=== PATIENT | male | born 1960 | race Caucasian/White ===

== ENCOUNTER 2021-01-17 10:40 | Emergency (ER) | payer BC ==
--- NOTE | 2021-01-17 12:30 | RAD REPORT ---
EXAM DESCRIPTION: RAD - Chest Single View - 01/17/2021 12:13 pm CLINICAL HISTORY: COUGH Chest pain. COMPARISON: No comparisons FINDINGS: Portable technique limits examination quality. Mild bilateral interstitial opacities are present suggesting a mild viral infection or less likely in terstitial pulmonary edema. The heart is upper limit of normal in size. No displaced fractures.
[2021-01-17 14:55] LABS: SARS-COV-2 RT PCR NEGATIVE (NEGATIVE)
[2021-01-17] MEDS ORDERED: METHYLPREDNISOLONE 125 MG INJ ONE (15:20)
[2021-01-17] MEDS ORDERED: IPRATROPIUM BROM 0.5MG/2.5ML ONE (15:21)
[2021-01-17] MEDS ORDERED: ALBUTEROL 2.5 MG/3 ML NEB SOL ONE (15:21)
[2021-01-17 15:29] LABS: Absolute Lymphocytes (CBC) 1.5 K/uL (0.7-4.9); Basophils % 2.8 % (0-1.3); Hematocrit 47.7 % (39.6-49.0); Lymphocytes % 22.9 % (15.3-44.8); MPV 9.3 fL (7.6-11.3); RBC Red Blood Cell Count 5.08 M/uL (4.33-5.43)
[2021-01-17 15:47] LABS: ALT/SGPT 71 U/L (12-78); AST/SGOT 49 U/L (15-37); Alkaline Phosphatase 204 U/L (45-117); BUN Blood Urea Nitrogen 14 mg/dL (7-18); Bicarbonate 30 mmol/L (21-32); Bilirubin Direct 0.1 mg/dL (0-0.2); Bilirubin Total 0.5 mg/dL (0.2-1.0); Ferritin 754.2 ng/mL (26-388); Glucose Level 93 mg/dL (74-106); Magnesium 2.4 mg/dL (1.8-2.4); NT PRO-BNP 8 pg/mL (<125); Potassium 4.2 mmol/L (3.5-5.1); Protein, Total 8.8 g/dL (6.4-8.2); Sodium Level 138 mmol/L (136-145); Troponin (Emerg Dept Use Only) < 0.02 ng/mL (0.0-0.045)
[2021-01-17 16:32] LABS: Urine Blood Negative (Negative); Urine Glucose Negative (Negative); Urine Protein Negative (Negative)
--- NOTE | 2021-01-17 16:33 | RAD REPORT ---
EXAM DESCRIPTION: CT - Chest For Pe Angio - 01/17/2021 4:10 pm CLINICAL HISTORY: SOB COMPARISON: Chest Single View dated 01/17/2021 TECHNIQUE: Dynamically enhanced 3 mm thick images of the chest were obtained during administration o f approximately 150mL Isovue 370 IV contrast. Coronal and oblique MIP reconstruction images were gene rated and reviewed. Exam utilizes a protocol to evaluate the pulmonary arterial tree. All CT scans are performed using dose optimization technique as appropriate and may include automated exposure control or mA/KV adjustment according to patient size. FINDINGS: No pulmonary emboli are identified. The aorta as imaged shows no acute or suspicious finding. Heart size is slightly enlarged. Prominent pericardial fat is present. No pericardial thickening or effusion. No infiltrate or mass in the lung parenchyma. No pleural effusion or pleural thickening. Interstitial pattern is prominent from infiltrate or edema. No mediastinal or hilar suspicious masses. No chest wall masses or abnormal axillary lymphadenopathy. Left hilar and left side mediastinal calcifications are benign in appearance. IMPRESSION: No pulmonary emboli identified. Prominent interstitial pattern from edema or infiltrate. No focal mass or consolidation.
--- NOTE | 2021-01-17 17:12 | ER ---
Nurse's Notes [facility] Name: Dmitry Nguyen Age: 60 yrs Sex: Male : 1960 Arrival Date: 01/17/2021 Time: 10:45 Bed 12 Private MD: Diagnosis: Other pneumonia, unspecified organism Presentation: 01/17 11:18 Chief complaint: Patient states: "[facility] checked [facility] oxygen ss and told me it was too low, to come here. They said it was 91%" Intermittent cough and chest congestion that began 3 weeks ago. Denies fever. Coronavirus screen: Client denies travel out of the [place] in the last 14 days. Ebola Screen: Patient denies exposure to infectious person. Patient denies travel to an Ebola-affected area in the 21 days before illness onset. Initial Sepsis Screen: Does the patient meet any 2 criteria? No. Patient's initial sepsis screen is negative. Does the patient have a suspected source of infection? No. Patient's initial sepsis screen is negative. Risk Assessment: Do you want to hurt yourself or someone else? Patient reports no desire to harm self or others. Onset of symptoms was December 27, 2020. 11:18 Method Of Arrival: Ambulatory ss 11:18 Acuity: MOISE 3 ss Historical: - Allergies: 11:22 No Known Allergies; ss - Home Meds: 11:22 None [Active]; ss - PMHx: 11:22 Umbilical hernia; ss - PSHx: 11:22 None; ss - Immunization history:: Adult Immunizations Client reports receiving the 1st dose of the Covid vaccine. - Social history:: Smoking status: Patient denies any tobacco usage or history of. Screenin:49 Abuse screen: Denies threats or abuse. Denies injuries from another. Nutritional ss screening: No deficits noted. Tuberculosis screening: Never had TB. Fall Risk None identified. Assessment: 15:40 Reassessment: Patient appears in no apparent distress at this time. Patient and/or ss family updated on plan of care and expected duration. Pain level reassessed. Patient is alert, oriented x 3, equal unlabored respirations, skin warm/dry/pink. Vital Signs: 11:18 BP 156 / 98; Pulse 79; Resp 17; Temp 97.0(TE); Pulse Ox 99% on R/A; Weight 97.52 kg; ss Height 5 ft. 8 in. (172.72 cm); Pain 0/10; 11:18 Body Mass Index 32.69 (97.52 kg, 172.72 cm) ss ED Course: 10:45 Patient arrived in ED. mr 11:21 Triage completed. ss 11:22 Arm band placed on right wrist. ss 12:13 XRAY Chest (1 view) In Process Unspecified. EDMS 14:35 Marco Neri PA is PHCP. cp 14:35 Marco Fernandez MD is Attending Physician. cp 14:41 Aleida Laurent, EHSAN is Primary Nurse. ss 14:49 Patient has correct armband on for positive identification. Bed in low position. Call ss light in reach. 15:08 Initial lab(s) drawn, by me, sent to lab. Inserted saline lock: 22 gauge in right kj1 antecubital area, using aseptic technique. Blood collected. 16:10 CT Chest For PE Angio In Process Unspecified. EDMS 17:50 No provider procedures requiring assistance completed. ss 17:56 IV discontinued, intact, bleeding controlled, No redness/swelling at site. Pressure ss dressing applied. Administered Medications: 15:29 Drug: Albuterol - atroVENT (ipratropium) (3:1) (2.5 mg - 0.5 mg) 3 ml Route: Nebulizer; ss 17:49 Follow up: Response: No adverse reaction ss 15:29 Drug: SOLU-Medrol (methylPrednisoLONE) 125 mg Route: IVP; Site: right antecubital; ss 17:14 Follow up: Response: No adverse reaction ss 17:20 Drug: Rocephin - (cefTRIAXone) 1 grams Route: IVPB; Infused Over: 30 mins; Site: right ss antecubital; 17:45 Follow up: IV Status: Completed infusion ss 17:40 Drug: Zithromax (azithromycin) 500 mg Route: PO; ss 18:10 Follow up: Response: No adverse reaction ss Outcome: 17:12 Discharge ordered by . cp 17:56 Condition: good ss 17:56 Discharge instructions given to Instructed on discharge instructions, follow up and referral plans. medication usage, Demonstrated understanding of instructions, follow-up care, medications, Prescriptions given X x5 18:09 Discharged to home ambulatory. ss 18:09 Patient left the ED. ss Signatures: Dispatcher [employer] AUREA Marlo Krupa Aleida Barajas, EHSAN RN ss Marco Neri PA PA cp Jackson, Kandis [email or web address] Corrections: (The following items were deleted from the chart) 11: PMHx: None; ss ss 11: PSHx: None; ss ss
--- NOTE | 2021-01-17 17:12 | EDPHYS ---
Physician Documentation [facility] Name: Dmitry Nguyen Age: 60 yrs Sex: Male : 1960 Arrival Date: 01/17/2021 Time: 10:45 Bed 12 Private MD: ED Physician Marco Fernandez HPI: 01/17 14:50 This 60 yrs old Male presents to ER via Ambulatory with complaints of Cough. cp 14:50 The patient or guardian reports cough, with no sputum, difficulty breathing. cp 14:50 Onset: The symptoms/episode began/occurred 3 week(s) ago. Severity of symptoms: in the emergency department the symptoms are unchanged, despite home interventions. Associated signs and symptoms: Pertinent positives: chest pain, with cough, Pertinent negatives: diarrhea, fever, vomiting. Patient reports having non-productive cough for about 3 weeks. Denies any fever. Reports he was referred to ED from [facility] due to oxygen sats being 91% on RA today. Historical: - Allergies: 11:22 No Known Allergies; ss - Home Meds: 11:22 None [Active]; ss - PMHx: 11:22 Umbilical hernia; ss - PSHx: 11:22 None; ss - Immunization history:: Adult Immunizations Client reports receiving the 1st dose of the Covid vaccine. - Social history:: Smoking status: Patient denies any tobacco usage or history of. ROS: 14:55 Constitutional: Negative for body aches, chills, fever, poor PO intake. cp 14:55 Eyes: Negative for injury, pain, redness, and discharge. cp 14:55 ENT: Negative for ear pain, sore throat, difficulty swallowing, difficulty handling secretions. 14:55 Cardiovascular: Positive for chest pain, with cough, Negative for edema, palpitations. 14:55 Respiratory: Positive for cough, with no reported sputum, shortness of breath. 14:55 Abdomen/GI: Negative for abdominal pain, nausea, vomiting, and diarrhea, constipation. 14:55 : Negative for urinary symptoms. 14:55 Neuro: Negative for altered mental status, dizziness, headache, syncope, weakness. 14:55 All other systems are negative. Exam: 15:00 Constitutional: The patient appears in no acute distress, alert, awake, cp non-diaphoretic, non-toxic, well developed, well nourished. 15:00 Head/Face: Normocephalic, atraumatic. cp 15:00 Eyes: Periorbital structures: appear normal, Conjunctiva: normal, no exudate, no injection, Sclera: no appreciated abnormality, Lids and lashes: appear normal, bilaterally. 15:00 ENT: External ear(s): are unremarkable, Nose: is normal, Mouth: Lips: moist, Oral mucosa: pink and intact, moist, Posterior pharynx: Airway: no evidence of obstruction, patent, Tonsils: no enlargement, no exudate, swelling, is not appreciated, erythema, that is mild, exudate, is not appreciated. 15:00 Neck: ROM/movement: is normal, is supple, without pain, no range of motions limitations, no meningismus. 15:00 Chest/axilla: Inspection: normal, Palpation: is normal, no crepitus, no tenderness. 15:00 Cardiovascular: Rate: normal, Rhythm: regular, Edema: is not appreciated, JVD: is not appreciated. 15:00 Respiratory: the patient does not display signs of respiratory distress, Respirations: labored breathing, is not present, shallow respirations, that is mild, Breath sounds: bronchial sounds, that are moderate, are heard diffusely, decreased breath sounds, that are mild, diffuse, stridor, is not appreciated. 15:00 Abdomen/GI: Inspection: abdomen appears normal, Palpation: abdomen is soft and non-tender, in all quadrants. 15:00 Back: pain, is absent, ROM is normal. 15:00 Skin: cellulitis, is not appreciated, no rash present. 15:00 Neuro: Orientation: to person, place \\T\\ time. Mentation: is normal, Motor: moves all fours, strength is normal, Sensation: is normal. 15:45 ECG was reviewed by the Attending Physician. cp Vital Signs: 11:18 BP 156 / 98; Pulse 79; Resp 17; Temp 97.0(TE); Pulse Ox 99% on R/A; Weight 97.52 kg; ss Height 5 ft. 8 in. (172.72 cm); Pain 0/10; 11:18 Body Mass Index 32.69 (97.52 kg, 172.72 cm) ss MDM: 14:38 Patient medically screened. lawson 15:00 Differential Diagnosis: Bronchitis Influenza Asthma Exacerbation Viral Syndrome cp Pneumonia Other COPD. 17:10 Data reviewed: vital signs, nurses notes, lab test result(s), EKG, radiologic studies, cp CT scan, plain films. 17:10 Test interpretation: by ED physician or midlevel provider: ECG, plain radiologic cp studies. Counseling: I had a detailed discussion with the patient and/or guardian regarding: the historical points, exam findings, and any diagnostic results supporting the discharge/admit diagnosis, lab results, radiology results, the need for outpatient follow up, a family practitioner, to return to the emergency department if symptoms worsen or persist or if there are any questions or concerns that arise at home. Response to treatment: the patient's symptoms have markedly improved after treatment, VSS. Oxygen sats 99% on RA. Patient reports symptoms improved. Will discharge to home for continued monitoring. 17:36 ED course: inquiry of [place] prescription monitor website shows last RX given for #20 cp hydrocodone 5/325 mg given 11-08-2019. 01/17 11:23 Order name: COVID-19/FLU A+B (Document "Date of Onset" if Symptomatic); Complete Time: ss 15:47 01/17 15:48 Interpretation: Reviewed. 01/17 14:50 Order name: Basic Metabolic Panel; Complete Time: 15:47 01/17 15:47 Interpretation: Normal except: GFR 82. 01/17 14:50 Order name: CBC with Diff; Complete Time: 15:48 01/17 16:41 Interpretation: Normal except: MN% 14.7; EOSINOPHIL % 4.5; BASO% 2.8. 01/17 14:50 Order name: LFT's; Complete Time: 15:48 01/17 17:05 Interpretation: Normal except: AST 49; ALK 204; TP 8.8; GLOB 4.8; A/G 0.8. 01/17 14:50 Order name: Magnesium; Complete Time: 15:48 cp 01/17 14:50 Order name: NT PRO-BNP; Complete Time: 15:48 01/17 17:12 Interpretation: Reviewed. 01/17 11:22 Order name: XRAY Chest (1 view); Complete Time: 15:47 ss 01/17 14:50 Order name: PT-INR; Complete Time: 15:47 cp 01/17 14:50 Order name: Troponin (emerg Dept Use Only); Complete Time: 15:48 cp 01/17 14:50 Order name: CRP; Complete Time: 15:48 cp 01/17 14:50 Order name: Ferritin; Complete Time: 15:48 cp 01/17 14:50 Order name: CT Chest For PE Angio; Complete Time: 16:40 cp 01/17 16:32 Order name: Urine Dipstick-Ancillary; Complete Time: 16:40 EDMS 01/17 17:06 Interpretation: Reviewed. cp 01/17 14:50 Order name: EKG; Complete Time: 14:51 cp 01/17 14:50 Order name: Cardiac monitoring; Complete Time: 15:12 cp 01/17 14:50 Order name: EKG - Nurse/Tech; Complete Time: 15:12 cp 01/17 14:50 Order name: IV Saline Lock; Complete Time: 15:12 cp 01/17 14:50 Order name: Labs collected and sent; Complete Time: 15:12 cp 01/17 14:50 Order name: O2 Per Protocol; Complete Time: 15:40 cp 01/17 14:50 Order name: O2 Sat Monitoring; Complete Time: 15:40 cp 01/17 16:42 Order name: Misc. Order: ambulate patient with pulse ox; Complete Time: 16:47 cp EC:45 Rate is 74 beats/min. Rhythm is regular. IN interval is normal. QRS interval is normal. cp QT interval is normal. T waves are Inverted in leads III, aVR. Interpreted by me. Reviewed by me. Administered Medications: 15:29 Drug: Albuterol - atroVENT (ipratropium) (3:1) (2.5 mg - 0.5 mg) 3 ml Route: Nebulizer; ss 17:49 Follow up: Response: No adverse reaction ss 15:29 Drug: SOLU-Medrol (methylPrednisoLONE) 125 mg Route: IVP; Site: right antecubital; ss 17:14 Follow up: Response: No adverse reaction ss 17:20 Drug: Rocephin - (cefTRIAXone) 1 grams Route: IVPB; Infused Over: 30 mins; Site: right ss antecubital; 17:45 Follow up: IV Status: Completed infusion ss 17:40 Drug: Zithromax (azithromycin) 500 mg Route: PO; ss 18:10 Follow up: Response: No adverse reaction ss Disposition: 01/18 09:08 Co-signature as Attending Physician, Marco Fernandez MD I agree with the assessment and lawson plan of care. Disposition Summary: 01/17/21 17:12 Discharge Ordered Location: Home cp Problem: new cp Symptoms: have improved cp Condition: Stable cp Diagnosis - Other pneumonia, unspecified organism cp Followup: cp - With: Private Physician - When: 2 - 3 days - Reason: Recheck today's complaints Discharge Instructions: - Discharge Summary Sheet cp - Community-Acquired Pneumonia, Adult cp Forms: - Medication Reconciliation Form cp - Thank You Letter cp - Antibiotic Education cp - Prescription Opioid Use cp Prescriptions: - Augmentin 875-125 mg Oral Tablet - take 1 tablet by ORAL route every 12 hours for 10 days; 20 tablet; Refills: 0, cp Product Selection Permitted - NEBULIZER MACHINE - apply 1 vial by NEBULIZATION route every 4-6 hours As needed; 1 Device; cp Refills: 0, Product Selection Permitted - albuterol sulfate 90 mcg/actuation Inhalation HFA aerosol inhaler - inhale 1 puff by INHALATION route every 4-6 hours; 1 Inhaler; Refills: 0, cp Product Selection Permitted - ipratropium-albuterol 0.5 mg-3 mg(2.5 mg base)/3 mL Inhalation solution for nebulization - inhale 3 milliliter by NEBULIZATION route 4 times per day As needed; 1 box; cp Refills: 0, Product Selection Permitted - Zithromax Z-Gregory 250 mg Oral Tablet - take 1 tablet by ORAL route as directed for 5 days Day 1 - take two (2) tablets cp one time. Day 2, 3, 4 , 5 take one (1) tablet once daily.; 6 tablet; Refills: 0, Product Selection Permitted - Medrol (Gregory) 4 mg Oral Tablets, Dose Pack - take 1 tablet by ORAL route as directed - follow package instructions; 1 cp packet; Refills: 0, Product Selection Permitted - Guaifenesin AC 10-100 mg/5 mL Oral Liquid - take 10 milliliters by ORAL route every 4 hours As needed; 240 milliliter; cp Refills: 0, Product Selection Permitted Signatures: Dispatcher [employer] Marco Milner MD MD cha Smirch, Shelby, RN RN ss Marco Nrei PA PA cp Corrections: (The following items were deleted from the chart) 01/17 PMHx: None; ss ss PSHx: None; ss ss
[2021-01-17] MEDS ORDERED: CEFTRIAXONE 1000 MG/VIAL ONE (17:26)
[2021-01-17] MEDS ORDERED: NA CHLORIDE 0.9% 50 ML ONE (17:26)
[2021-01-17] MEDS ORDERED: AZITHROMYCIN 250 MG TAB ONE (17:27)
[2021-01-17] MEDS ORDERED: CEFTRIAXONE 1,000 MG in NA CHLORIDE 0.9% 50 ML IVPB ONE (18:00)
[2021-01-17 18:18] VITALS: BP 156/98; TEMP 97; O2SAT 99
--- NOTE | 2021-01-18 16:23 | EKG ---
Test Date: 2021-01-17 Test Time: 15:38:57 Sas Clinical Programmer: DRU MEASUREMENT RESULTS: Intervals: Rate: 74 MD: 142 QRSD: 80 QT: 364 QTc: 404 [place]: P: -6 MD: 142 QRS: 30 T: 12 INTERPRETIVE STATEMENTS: Normal sinus rhythm Anterior infarct, age undetermined Abnormal ECG No previous ECG available for comparison Electronically Signed On 01-18-21 16:21:25 LOCKSTITCH HEMMER by Claudio Verdin
== END 2021-01-17 18:09 | disposition home or self-care (01) ==
LOC: ER 10:40
DX: J18.8 Other pneumonia, unspecified organism (principal); Z20.822 Contact with and (suspected) exposure to COVID-19
CPT/HCPCS: 96365; 93005; 85025; 80048; 36415; 83735; 85610; 80076; 81003; 84484; 82728; 83880; 0240U; 86140; 71275; 71045; 94640; 96375; 99284; Q9967; J2930

== ENCOUNTER 2021-04-02 12:43 | Emergency (ER) | payer BC ==
[2021-04-02] MEDS ORDERED: DIAZEPAM 10 MG/2 ML INJ SYRINGE ONE (12:45)
[2021-04-02] MEDS ORDERED: NA CHLORIDE 0.9% 1,000 ML ONE (12:59)
[2021-04-02 13:13] LABS: Absolute Lymphocytes (CBC) 1.9 K/uL (0.7-4.9); Hematocrit 48.5 % (39.6-49.0); Lymphocytes % 16.2 % (15.3-44.8); MPV 8.5 fL (7.6-11.3); RBC Red Blood Cell Count 5.06 M/uL (4.33-5.43)
[2021-04-02] MEDS ORDERED: HALOPERIDOL LACT 5 MG/ML INJ ONE (13:21)
[2021-04-02 13:23] LABS: Protime INR 0.96
[2021-04-02 13:45] LABS: ALT/SGPT 139 U/L (12-78); AST/SGOT 48 U/L (15-37); Albumin 3.2 g/dL (3.4-5.0); Alkaline Phosphatase 125 U/L (45-117); BUN Blood Urea Nitrogen 25 mg/dL (7-18); Bicarbonate 25 mmol/L (21-32); Bilirubin Direct 0.2 mg/dL (0-0.2); Bilirubin Total 0.6 mg/dL (0.2-1.0); Glucose Level 122 mg/dL (74-106); Potassium 4.4 mmol/L (3.5-5.1); Protein, Total 6.6 g/dL (6.4-8.2); Sodium Level 140 mmol/L (136-145)
[2021-04-02] MEDS ORDERED: ONDANSETRON 4 MG/2 ML VIAL ONE (14:38)
[2021-04-02] MEDS ORDERED: NA CHLORIDE 0.9% 500 ML ONE (16:44)
[2021-04-02 17:08] LABS: Barbiturates NEGATIVE (NEGATIVE); Benzodiazepines NEGATIVE (NEGATIVE); Cocaine NEGATIVE (NEGATIVE); METHAMPHETAM NEGATIVE (NEGATIVE); Methadone NEGATIVE (NEGATIVE); Opiates NEGATIVE (NEGATIVE); Phencyclidine NEGATIVE (NEGATIVE); THC Cannibis NEGATIVE (NEGATIVE)
--- NOTE | 2021-04-02 18:11 | ER ---
Nurse's Notes [facility] Name: Dmitry Nguyen Age: 61 yrs Sex: Male : 1960 Arrival Date: 04/02/2021 Time: 12:45 Bed 4 Private MD: Diagnosis: Anxiety disorder, unspecified;Shortness of breath Presentation: 04/02 12:52 Chief complaint: EMS states: EMS called to police station for difficulty breathing, pt ph found to be having a panic attack, hx of PTSD, pt was tachypneic, yelling, uncooperative w/ police and EMS, 400 mg Ketamine administered IM in L glute. BP elevated at 200s/120s, initial HR 159, Spo2 95% RA, pt restrained w/ NRB in place upon arrival to ED, awake but not speaking. Coronavirus screen: At this time, the client does not indicate any symptoms associated with coronavirus-19. Ebola Screen: No symptoms or risks identified at this time. Initial Sepsis Screen: Does the patient meet any 2 criteria? No. Patient's initial sepsis screen is negative. Does the patient have a suspected source of infection? No. Patient's initial sepsis screen is negative. Risk Assessment: Do you want to hurt yourself or someone else? Unable to obtain. Onset of symptoms was April 02, 2021. 12:52 Method Of Arrival: EMS: [facility] 12:52 Acuity: MOISE 2 ph Historical: - Allergies: 13:00 No Known Allergies; ph - PMHx: 13:00 Umbilical hernia; ETOH use; PTSD; ph - Immunization history:: Adult Immunizations unknown. - Social history:: Smoking status: unknown. Screenin:01 Abuse screen: Denies threats or abuse. Denies injuries from another. Nutritional ph screening: No deficits noted. Tuberculosis screening: No symptoms or risk factors identified. Fall Risk None identified. Assessment: 13:00 General: Appears uncomfortable, Behavior is anxious, combative, drowsy, Smells of vg1 alcohol. Pain: Denies pain. Neuro: Level of Consciousness is awake, alert, confused, Oriented to person. Cardiovascular: Patient's skin is warm and dry. Respiratory: Airway is patent Respiratory effort is even, unlabored, Respiratory pattern is tachypnea. GI: No signs and/or symptoms were reported involving the gastrointestinal system. : No signs and/or symptoms were reported regarding the genitourinary system. EENT: No signs and/or symptoms were reported regarding the EENT system. Derm: Skin is intact, is healthy with good turgor. Musculoskeletal: Circulation, motion, and sensation intact. 14:05 Reassessment: Patient appears in no apparent distress at this time. Patient and/or vg1 family updated on plan of care and expected duration. Pain level reassessed. Patient is alert, oriented x 3, equal unlabored respirations, skin warm/dry/pink. be is cooperative Patient denies pain at this time. 14:05 Musculoskeletal: Circulation, motion, and sensation intact. Range of motion: intact in vg1 all extremities. 14:05 Derm: Skin is intact, is healthy with good turgor. vg1 15:03 Reassessment: Patient appears in no apparent distress at this time. No changes from vg1 previously documented assessment. Patient and/or family updated on plan of care and expected duration. Pain level reassessed. Patient is alert, oriented x 3, equal unlabored respirations, skin warm/dry/pink. 16:00 Reassessment: Patient appears in no apparent distress at this time. No changes from vg1 previously documented assessment. Patient and/or family updated on plan of care and expected duration. Pain level reassessed. Patient is alert, oriented x 3, equal unlabored respirations, skin warm/dry/pink. pt states is 'nauseated' but declines any nausea medication; provider notified. 17:00 Reassessment: Patient appears in no apparent distress at this time. No changes from vg1 previously documented assessment. Patient and/or family updated on plan of care and expected duration. Pain level reassessed. Patient is alert, oriented x 3, equal unlabored respirations, skin warm/dry/pink. Psych: 14:30 [place] Suicide Severity Screening: In the past month, have you wished you were vg1 or wished you could go to sleep and not wake up? Patient responds "No." "In the past month, have you actually had any thoughts of killing yourself?" Patient responds "no." "In your lifetime, have you ever done anything, started to do anything, or prepared to do anything to end your life?" Patient responds "no.". Subjective: Patient's mood is anxious Delusions are denied, Hallucinations are denied. Objective: Patient is cooperative, Speech is normal, Affect is appropriate. 14:30 Interventions: Urine collected and sent for urine drug test. Safety Checks: EDUIN SHAIKH at vg1 bedside. Pt denies substance abuse. 14:30 Commitment: Patient will be a voluntary commitment. vg1 Vital Signs: 12:52 BP 156 / 112; Pulse 128; Resp 16; Temp 97.0; Pulse Ox 96% on R/A; ph 13:00 BP 150 / 110; Pulse 114; Resp 21; Pulse Ox 98% on 4 lpm NC; vg1 14:00 BP 162 / 108; Pulse 111; Resp 19; Pulse Ox 97% on R/A; vg1 15:00 BP 139 / 96; Pulse 113; Resp 18; Pulse Ox 97% on R/A; vg1 16:30 BP 166 / 105; Pulse 115; Resp 19; Pulse Ox 98% on R/A; vg1 17:00 BP 180 / 107; Pulse 108; Resp 20; Pulse Ox 96% on R/A; vg1 17:30 BP 191 / 96; Pulse 107; Resp 19; Pulse Ox 96% on R/A; vg1 18:30 BP 184 / 99; Pulse 105; Resp 20; Pulse Ox 96% on R/A; vg1 ED Course: 12:45 Patient arrived in ED. eb 12:58 Santino Braun MD is Attending Physician. kdr 13:00 Triage completed. ph 13:00 Arm band placed on right wrist. ph 13:01 Patient has correct armband on for positive identification. Bed in low position. Call ph light in reach. residential monitor on. Pulse ox on. NIBP on. Door closed. Noise minimized. Warm blanket given. Verbal reassurance given. 13:05 EKG done, by ED staff, reviewed by Santino Braun MD. dh3 13:06 Maintain EMS IV. Dressing intact. Good blood return noted. Site clean \\T\\ dry. Gauge \\T\\ ph site: 20 RAC. IV is patent, is intact, with fluids infusing freely, with good blood return. 13:09 Dorcas Gil, RN is Primary Nurse. vg1 13:30 No provider procedures requiring assistance completed. vg1 18:42 IV discontinued, intact, bleeding controlled, No redness/swelling at site. Pressure vg1 dressing applied. Restraints: 12:50 Violent/Self Destructive Restraint: Order: obtained. Initiated April 02, 2021 at ph 12:50 Staff present during the Initiation of Restraint: Dr Braun, Renee Avila, RN, Natalia Monet RN, Juan SHAIKH. Observed actions/behavior: confusion/disorientation, difficulty remembering or follow instructions, impaired decision making, unable to follow instructions, rptd attempts to remove/tamper lines/tubes/IV/med devices \\T\\ wnd dressing, verbally abusive, Monitoring: Mental status: agitated/restless, confused. Cognition: poor attention/concentration, unable to follow commands, Circulation: Within defined parameters (based on Cardiovascular assessment). Skin integrity: Within defined parameters (based on Integumentary assessment) No injuries due to Restraints noted. Restraint status: Side rails up x 4 Soft wrist restraint (Right) Started. Soft wrist restraint (Left) Started. Readiness for Discontinue: Criteria not met. Patient still violent/self destructive and Alternative interventions still ineffective. Restraint continued. 13:05 Violent/Self Destructive Restraint: Monitoring: Mental status: agitated/restless, vg1 confused. Cognition: poor attention/concentration, unable to follow commands, Circulation: Within defined parameters (based on Cardiovascular assessment). Skin integrity: Within defined parameters (based on Integumentary assessment) No injuries due to Restraints noted. 13:20 Violent/Self Destructive Restraint: Observed actions/behavior: vg1 confusion/disorientation, difficulty remembering or follow instructions, impaired decision making, unable to follow instructions, rptd attempts to remove/tamper lines/tubes/IV/med devices \\T\\ wnd dressing, Monitoring: Mental status: agitated/restless, confused. Cognition: poor attention/concentration, unable to follow commands, Circulation: Within defined parameters (based on Cardiovascular assessment). Skin integrity: Within defined parameters (based on Integumentary assessment) No injuries due to Restraints noted. 13:35 Violent/Self Destructive Restraint: Observed actions/behavior: vg1 confusion/disorientation, difficulty remembering or follow instructions, impaired decision making, unable to follow instructions, Monitoring: Mental status: agitated/restless, confused. Cognition: poor attention/concentration, unable to follow commands, Circulation: Within defined parameters (based on Cardiovascular assessment). Skin integrity: Within defined parameters (based on Integumentary assessment) No injuries due to Restraints noted. 13:50 Violent/Self Destructive Restraint: Range of Motion: Performed. Elimination/Hygiene: vg1 assisted to the bathroom. 15:02 Violent/Self Destructive Restraint: Restraint discontinuation: Discontinued at March vg1 2021 at 14:05. Administered Medications: 12:50 Drug: Valium (diazepam) 5 mg Route: IVP; Site: right antecubital; 17:22 Follow up: Response: No adverse reaction; Anxiety decreased vg1 13:09 Drug: NS 0.9% 1000 ml Route: IV; Rate: 1 bolus; Site: right antecubital; vg1 14:00 Follow up: IV Status: Completed infusion; IV Intake: 1000ml vg1 16:54 Drug: NS 0.9% 500 ml Route: IV; Rate: bolus; Site: right antecubital; vg1 17:52 Follow up: IV Status: Completed infusion; IV Intake: 500ml vg1 17:35 Not Given (Physician Discretion): HALdol (haloperidol) 1 mg IVP once vg1 Intake: 14:00 IV: 1000ml; Total: 1000ml. vg1 17:52 IV: 500ml; Total: 1500ml. vg1 Outcome: 18:11 Discharge ordered by . kdr 18:42 Discharged to Law Enforcement vg1 18:42 Condition: good 18:42 Discharge instructions given to patient, police. 18:43 Patient left the ED. vg1 Signatures: Santino Braun MD MD [facility] Renee Avila, EHSAN MOSER Natalia Monet RN RN Betty Jovel [facility] Peggy Zhang Victoria, RN RN vg1 Corrections: (The following items were deleted from the chart) 15:04 14:05 Reassessment: Patient appears in no apparent distress at this time. Patient vg1 and/or family updated on plan of care and expected duration. Pain level reassessed. Patient is alert, oriented x 3, equal unlabored respirations, skin warm/dry/pink. be is cooperative Patient denies pain at this time. vg1
--- NOTE | 2021-04-02 18:11 | EDPHYS ---
Physician Documentation [facility] Name: Dmitry Nguyen Age: 61 yrs Sex: Male : 1960 Arrival Date: 04/02/2021 Time: 12:45 Bed 4 Private MD: ED Physician Santino Braun HPI: 04/02 13:02 This 61 yrs old Male presents to ER via EMS with complaints of Altered mental status. kdr 13:02 The patient presents with agitation, confusion, disorientation. Onset: The kdr symptoms/episode began/occurred at an unknown time. Possible causes: Psychiatric, PTSD. Associated signs and symptoms: The patient has no apparent associated signs or symptoms. Current symptoms: In the emergency department the patient's symptoms are unchanged from the initial presentation. Patient's baseline: Unknown. It is unknown whether or not the patient has had similar symptoms in the past. It is unknown whether or not the patient has recently seen a physician. Patient arrived by EMS in police custody. He had been given 400 mg of ketamine prior to arrival IM. He was currently belligerent but manageable. Patient is very paranoid acting. He is unable to respond to questions due to his mental status. Please relate that he was initially contacted by them at home where he was acting combative and apparently felt to be a danger to himself or others at the scene. At that point he was taken into custody and brought to the custodial. After several hours, the patient seemed to be having a panic attack and was complaining of shortness of breath. EMS was called and on their initial contact, the patient was Petersen cooperative. They gave the patient 400 mg of ketamine which enabled them to gain sufficient control to package the patient and bring him to the ED. On arrival, he was very uncooperative and agitated.. Historical: - Allergies: 13:00 No Known Allergies; ph - PMHx: 13:00 Umbilical hernia; ETOH use; PTSD; ph - Immunization history:: Adult Immunizations unknown. - Social history:: Smoking status: unknown. ROS: 13:02 Constitutional: Unable to obtain secondary to the patient's altered mental status kdr Exam: 13:02 Constitutional: This is a well developed, well nourished patient who is apparently kdr under the influence of the ketamine and poorly alert, and in moderate distress. Head/Face: Normocephalic, atraumatic. Eyes: Pupils equal round and reactive to light, extra-ocular motions intact. Lids and lashes normal. Conjunctiva and sclera are non-icteric and not injected. Cornea within normal limits. Periorbital areas with no swelling, redness, or edema. Neck: Trachea midline, no thyromegaly or masses palpated, and no cervical lymphadenopathy. Supple, full range of motion without nuchal rigidity, or vertebral point tenderness. No Meningismus. Chest/axilla: Normal chest wall appearance and motion. Nontender with no deformity. No lesions are appreciated. Cardiovascular: Regular rate and rhythm with a normal S1 and S2. No gallops, murmurs, or rubs. Normal PMI, no JVD. No pulse deficits. Respiratory: Lungs have equal breath sounds bilaterally, clear to auscultation and percussion. No rales, rhonchi or wheezes noted. No increased work of breathing, no retractions or nasal flaring. Psych: Awake, alert, with orientation to person, place and time. Behavior, mood, and affect are within normal limits. 13:02 Neuro: Orientation: unable to test, Agitated and uncooperative with altered mental status, Cranial nerves: no acute changes, Motor: moves all fours, Sensation: unable to test, Gait: unable to assess, Agitated and paranoid. Vital Signs: 12:52 BP 156 / 112; Pulse 128; Resp 16; Temp 97.0; Pulse Ox 96% on R/A; ph 13:00 BP 150 / 110; Pulse 114; Resp 21; Pulse Ox 98% on 4 lpm NC; vg1 14:00 BP 162 / 108; Pulse 111; Resp 19; Pulse Ox 97% on R/A; vg1 15:00 BP 139 / 96; Pulse 113; Resp 18; Pulse Ox 97% on R/A; vg1 16:30 BP 166 / 105; Pulse 115; Resp 19; Pulse Ox 98% on R/A; vg1 17:00 BP 180 / 107; Pulse 108; Resp 20; Pulse Ox 96% on R/A; vg1 17:30 BP 191 / 96; Pulse 107; Resp 19; Pulse Ox 96% on R/A; vg1 18:30 BP 184 / 99; Pulse 105; Resp 20; Pulse Ox 96% on R/A; vg1 MDM: 16:04 Data reviewed: vital signs, nurses notes, lab test result(s), radiologic studies. kdr Counseling: I had a detailed discussion with the patient and/or guardian regarding: the historical points, exam findings, and any diagnostic results supporting the discharge/admit diagnosis, lab results, radiology results. ED course: Patient is currently refusing head CT. I have reinterviewed the patient. He seems distraught that he was injected with medications at the custodial which she feels is now left him disoriented and dizzy. He seems to be very distraught over his current situation. He indicated that he is never been in custodial never already had a speeding ticket he had now he sits in custodial. On top of that he felt like he could not breathe and when EMS was called, they subsequently injected him with medications that now have him feeling very unsettled. Patient appears very paranoid and distraught over his current circumstances. He is not currently threatening himself or others. He is acting in a controlled manner. He does not require further intervention at this time. We will reevaluate in an hour or so to determine whether or not he is returning back to baseline is sufficiently stable to go back to custodial with the officer present. 18:11 Patient medically screened. [facility] 04/02 13: Order name: Acetaminophen [facility] 04/02 13: Order name: Basic Metabolic Panel [facility] 04/02 13: Order name: CBC with Diff [facility] 04/02 13: Order name: ETOH Level [facility] 04/02 13: Order name: Hepatic Function; Complete Time: 16:03 [facility] 04/02 13: Order name: PT-INR; Complete Time: 16:03 [facility] 04/02 13: Order name: Ptt, Activated; Complete Time: 16:03 [facility] 04/02 13: Order name: Salicylate; Complete Time: 16:03 [facility] 04/02 13: Order name: Urine Drug Screen; Complete Time: 18:09 [facility] 04/02 13: Order name: Acetaminophen Level; Complete Time: 16:03 [facility] 04/02 13:01 Order name: Basic Metabolic Panel; Complete Time: 16:03 [facility] 04/02 13:01 Order name: CBC with Automated Diff; Complete Time: 16:03 [facility] 04/02 13:01 Order name: Alcohol Serum/Plasma; Complete Time: 16:03 [facility] 04/02 16:38 Order name: Troponin High Sensitivity; Complete Time: 18:09 vg1 04/02 13:01 Order name: EKG; Complete Time: 13:01 kdr 04/02 13:01 Order name: EKG - Nurse/Tech; Complete Time: 13:09 kdr 04/02 13:01 Order name: IV Saline Lock; Complete Time: 13:09 kdr 04/02 13:01 Order name: Labs collected and sent; Complete Time: 13:09 kdr 04/02 13:01 Order name: Suicide Screening ([place]); Complete Time: 17:37 kdr 04/02 13:01 Order name: Urine Dipstick-Ancillary (obtain specimen); Complete Time: 17:20 kdr Administered Medications: 12:50 Drug: Valium (diazepam) 5 mg Route: IVP; Site: right antecubital; iw 17:22 Follow up: Response: No adverse reaction; Anxiety decreased vg1 13:09 Drug: NS 0.9% 1000 ml Route: IV; Rate: 1 bolus; Site: right antecubital; vg1 14:00 Follow up: IV Status: Completed infusion; IV Intake: 1000ml vg1 16:54 Drug: NS 0.9% 500 ml Route: IV; Rate: bolus; Site: right antecubital; vg1 17:52 Follow up: IV Status: Completed infusion; IV Intake: 500ml vg1 17:35 Not Given (Physician Discretion): HALdol (haloperidol) 1 mg IVP once vg1 Disposition Summary: 04/02/21 18:11 Discharge Ordered Location: Home kdr Problem: new kdr Symptoms: have improved kdr Condition: Stable kdr Diagnosis - Anxiety disorder, unspecified kdr - Shortness of breath kdr Followup: kdr - With: Private Physician - When: 2 - 3 days - Reason: If symptoms return, Further diagnostic work-up, Recheck today's complaints, Continuance of care, Re-evaluation by your physician Discharge Instructions: - Discharge Summary Sheet kdr - Shortness of Breath, Adult, [id number] kdr - Generalized Anxiety Disorder, Adult kdr Forms: - Medication Reconciliation Form kdr - Thank You Letter kdr Signatures: Dispatcher [employer] Santino Anthony MD MD kdr Renee Avila RN RN iw Natalia Monet RN RN ph Jeffery, Dorcas, RN RN vg1
[2021-04-02 19:01] VITALS: TEMP 97
[2021-04-02 19:07] VITALS: O2SAT 96
[2021-04-02 19:09] VITALS: BP 184/99
== END 2021-04-02 18:43 | disposition home or self-care (01) ==
LOC: ER 12:43
DX: F41.9 Anxiety disorder, unspecified (principal); R06.02 Shortness of breath; F43.10 Post-traumatic stress disorder, unspecified
CPT/HCPCS: 96361; 93005 ×2; 85025; 80048; 36415; 80320; 80329 ×2; 85610; 80076; 85730; 84484; 80307; 96374; 99285; J3360; J7040; J7030; J2405; J1630

== ENCOUNTER 2023-10-30 05:57 | Day surgery (SDC) | payer BC ==
[2023-10-29 15:05] LABS: Absolute Basophils 0.1 K/uL (0-0.5); Absolute Eosinophils 0.3 K/uL (0-0.5); Absolute Lymphocytes (CBC) 1.5 K/uL (0.7-4.9); Absolute Monocytes 1.1 K/uL (0.1-1.3); Absolute Neutrophil 6.5 K/uL (1.8-8.0); Basophils % 1.1 % (0-1.3); Eosinophils % 3.4 % (0-4.4); Hematocrit 46.7 % (39.6-49.0); Hemoglobin 15.9 g/dL (13.6-17.9); Lymphocytes % 16.1 % (15.3-44.8); MCH 32.6 pg (27.0-35.0); MCHC 34.2 g/dL (32.0-36.0); MCV 95.3 fL (80-100); MPV 8.5 fL (7.6-11.3); Monocytes % 11.4 % (3.3-12.3); Nucleated Red Blood Cells % 0.1 % (0-0); Platelets 208 thou/uL (152-406); Red Cell Distribution Width 14.3 % (12.1-15.2)
--- NOTE | 2023-10-29 15:16 | RAD REPORT ---
EXAM DESCRIPTION: RAD - Chest Pa And Lat (2 Views) - 10/29/2023 3:06 pm CLINICAL HISTORY: pre op Chest pain. COMPARISON: <Comparisons> FINDINGS: Mild interstitial pulmonary edema. The heart is mildly enlarged in size. No displaced frac tures. IMPRESSION: Mild CHF.
[2023-10-29 15:18] LABS: Anion Gap 8.1 mEq/L (5.0-15.0); Potassium 4.1 mEq/L (3.5-5.1)
[2023-10-30] MEDS ORDERED: CEFAZOLIN SODIUM 1 GM/VIAL ONE (06:14)
[2023-10-30] MEDS ORDERED: Ringers Lactate 1,000 ML IV ONE (06:15)
[2023-10-30] MEDS ORDERED: propofoL 200 MG/20 ML VIAL IV ONE (07:04)
[2023-10-30] MEDS ORDERED: KETOROLAC 30 MG/ML INJ ONE (07:04)
[2023-10-30] MEDS ORDERED: MIDAZOLAM HCL 2 MG/2 ML INJ ONE (07:04)
[2023-10-30] MEDS ORDERED: LIDOCAINE 1% MPF 5 ML VIAL ONE (07:04)
[2023-10-30] MEDS ORDERED: ROCURONIUM 50 MG/5 ML VIAL IV ONE (07:04)
[2023-10-30] MEDS ORDERED: FENTANYL CITR 100 MCG/2 ML ONE (07:04)
[2023-10-30] MEDS ORDERED: GLYCOPYRROLATE 0.2 MG/ML SYR ONE (07:04)
[2023-10-30] MEDS ORDERED: ONDANSETRON 4 MG/2 ML VIAL ONE (07:04)
[2023-10-30] MEDS ORDERED: DEXMEDETOMIDINE HCL 200 MCG/2 ML VIAL ONE (07:53)
[2023-10-30] MEDS ORDERED: EPHEDRINE SULF 50 MG/ML VIAL ONE (08:08)
--- NOTE | 2023-10-30 08:33 | P.BOP ---
Preoperative diagnosis: tender umbilical hernia Postoperative diagnosis: same Primary procedure: Laparoscopic repair of tender umbilical hernia 4cm with mesh Estimated blood loss: <10cc Specimen: sac Findings: as above, incarcerated omentum Anesthesia: General Complications: None Implants: ventralex mesh Transferred to: Recovery Room Condition: Good
[2023-10-30] MEDS ORDERED: Mastisol Adhesive Liq ONE (08:36)
[2023-10-30 10:09] VITALS: BP 129/88; TEMP 96.4; O2SAT 97
--- NOTE | 2023-10-31 16:29 | EKG ---
Test Date: 2023-10-29 Test Time: 14:52:30 Entry Operator: MORRIS MEASUREMENT RESULTS: Intervals: Rate: 74 WV: 130 QRSD: 94 QT: 368 QTc: 408 [place]: P: 1 WV: 130 QRS: 33 T: 23 INTERPRETIVE STATEMENTS: Normal sinus rhythm Normal ECG Compared to ECG 04/02/2021 17:06:11 Sinus tachycardia no longer present Myocardial infarct finding no longer present Electronically Signed On 10-31-23 16:23:39 CDT by Jaison Mederos
--- NOTE | 2023-11-05 05:14 | OP ---
Surgeon: Guillermo Cummings MD Preoperative Diagnosis: Tender umbilical hernia. Postoperative Diagnosis: Tender umbilical hernia. Procedure: Laparoscopic repair of umbilical hernia with mesh about 4 cm. Estimated Blood Loss: Less than 10 cc. Findings: Incarcerated omentum and umbilical hernia. Mesh: Ventralex mesh. Complications: None. Indications: This is a case of a 63-year-old patient who comes to us with a tender umbilical hernia. The benefits, alternatives, and risks of laparoscopic versus open repair with mesh fully explained, which include, but not limited to, infection, bleeding, damage to adjacent structures, anesthesia co mplication, AL, and even . He also understands we might have to use mesh in that region, so pro s and cons of mesh use were discussed with the patient and all the questions were answered to his sat isfaction. He signed a consent. Procedure In Detail: The patient was brought to the operating room, placed in supine position. Anes thesia was done without complication. Abdominal area was prepped and draped in usual sterile fashion . Local anesthetic was applied, followed by incision in the periumbilical region. We noticed the fa scial edges to be friable, so it needed to be reinforced, so what we did is just we the umb ilical skin, removed the hernia sac. We noticed incarcerated omentum in that region that was careful ly released. Adhesions were removed. Once we inspected the omentum to make sure it was viable, we w ere able to reduce back into the abdominal cavity. The fascial edges were clean. Once again, we not ed the fascial edges will need some reinforcement because they were friable at this moment. We still put Vicryl #1 multiple times in that fascia trying to approximate at least to cover the mesh that we were about to put on. In that case, I put a Sreekanth trocar to the area, allowed me to obtain pneumop eritoneum and allowed me also to put 2 more trocars, 5 mm each one of them on the inside of the abdom en. This allowed me once again to visualize the center, and this allowed me also to see the defects. A mesh was selected to properly cover the area for about 3 to 5 cm. We put that mesh right through the umbilical incision, secured in place with a SorbaFix, removed its straps, finished closing the d efects with #1 Vicryl and then after that went underneath and secured the mesh circumferentially to m mika sure there was no bowel in between or any bowel can get in between. At that moment, I checked th e area where the previous adhesions were lysed previously. Checked the omentum and was still viable. The area seemed to be airproof. At that moment, I proceeded then to remove the camera. Deflated p neumoperitoneum under direct visualization. Then, closed the subcutaneous tissue with 3-0 chromic an d the skin approximated. Sponge count and instrument counts correct. The patient tolerated the proc edure well. The patient was sent to recovery in stable condition. JANETTE/YAEL Voice ID: [id number] Report ID: [id number]
--- NOTE | 2023-11-05 05:14 | DS ---
Date of Discharge: 10/30/2023 Diagnosis: Tender umbilical hernia. Procedure: Laparoscopic repair of tender umbilical hernia with mesh about 4 cm. Condition: Stable. Disposition: Home. Activity: As tolerated. No heavy lifting. Discharge Instructions: Follow up in my office in 1 week, call for appointment [phone]. Keep area dry for 48 hours, then may shower. JANETTE/YAEL Voice ID: [id number] Report ID: [id number]
== END 2023-10-30 10:05 | disposition home or self-care (01) ==
LOC: OR 05:57
PROVIDERS: ATTEND Surgery
PROC: 0WUF0JZ Supplement Abdominal Wall with Synthetic Substitute, Open Approach (ICD-10-PCS; principal; 2023-10-30 07:30)
DX: K42.9 Umbilical hernia without obstruction or gangrene (principal)
CPT/HCPCS: 93005; 85025; 80048; 36415; 88302; 71046; 49593; J2704; J2001; J2250; J3010; J2405; J7120; J0690